=== PATIENT | male | born 1955 | race African-American/Black ===

== ENCOUNTER 2016-11-05 02:17 | Observation (INO) ==
[2016-11-05] MEDS ORDERED: ASPIRIN 325 MG TABLET PO STA (02:58)
[2016-11-05] MEDS ORDERED: MORPHINE 2 MG/1 ML SYRINGE IV STA (02:58)
[2016-11-05] MEDS ORDERED: ONDANSETRON 4 MG/2 ML VIAL IV STA (02:58)
--- NOTE | 2016-11-05 03:05 | Emergency Department Note ---
Jonathan Urbina Hilary, am scribing for, and in the presence of, Caro Tomas DO 03: 02. IThom Debra, DO, personally performed the services described in this documentation, ascribed by Susan Castillo in my presence, and it is both accurate and complete . Arrival - Arrival Chief Complaint: Chest Pain Stated Complaint: poss.heart attack ED Nursing Triage Note: C/O Pain to upper chest radiating into left side of neck. Onset 1899 yesterday after getting off of work. Pt reports that he went to bed and the pain woke him up more severe approx one hour ago. +SOB with the pain. Denies Nausea/vomiting/diaphoresis. Mode of Arrival: Ambulatory Limitations: No Limitations Source: Patient, RN Notes Reviewed Time Seen by Provider: 11/05/16 02:53 - History of Present Illness HPI Narrative: Pt is a 61 y/o male presenting to the ED with c/o chest pains that radiate to the left side of his neck which onset 1899 yesterday. Pt states that he was laying on his left side when the pain woke him up, he became short of breath and decided to come to the ED. Pt confirms he had a stress test and passed it but doesnt recall when it was. No other complaints or problems stated in the ED. Onset (ago): hour(s) Consistency: constant Severity: moderate Severity scale (1-10): 5 Allergies/Adverse Reactions: Allergies Allergy/AdvReac Type Severity Reaction Status Date / Time No Known Allergies Allergy Verified 09/12/16 16:49 Home Medications: Home Medications Medication Instructions Recorded Confirmed Type Esomeprazole Magnesium [Nexium] 40 mg PO DAILY 12/17/14 11/05/16 History Rosuvastatin [Crestor] 20 mg PO DAILY 12/06/15 11/05/16 History Aspirin 81 mg PO DAILY 11/05/16 11/05/16 History Review of System - Review of System 12 point system: reviewed and no additional remarkable complaints except as stated - Review of System Constitutional: Absent: fever Respiratory: Present: respiratory distress (SOB with pain) Cardiovascular: Present: chest pain (radiates to neck) Gastrointestinal: Absent: nausea, vomiting Musculoskeletal: Present: neck pain (radiates from chest) Medical,Surgical,& Family Hx - Medical History Endocrine: History of: Dyslipidemia No history of: Diabetes Mellitus (IDDM) Genitourinary: No history of: Kidney Stones Gastrointestinal: History of: GERD Musculoskeletal: History of: Back/Neck Problems (pulled muscle) Other: No history of: Cancer - Surgical History Cardiac Surgeries: Patient Denies: Cardiac Catheterization HEENT Surgeries: Patient denies: Tonsilectomy & Adenoidectomy Abdominal Surgeries: Surgical HX of: Colonoscopy, EGD Patient denies: Appendectomy, Cholecystectomy Orthopedic Surgeries: Patient denies;: Orthopedic Surgery - Social History Smoking Status: Never smoker Frequency of Alcohol Use: None Type of Drug Use: None Exam Vital Signs: Vital Signs Temperature 97.5 F L 11/05/16 02:20 Pulse Rate 73 11/05/16 02:20 Respiratory Rate 18 11/05/16 02:20 Blood Pressure 130/79 11/05/16 02:20 O2 Sat by Pulse Oximetry 97 11/05/16 02:20 - General General appearance: alert, in no apparent distress - Head Head exam: Present: atraumatic, normocephalic - Eye Eye exam: Present: normal appearance, PERRL, EOMI - ENT ENT exam: Present: mucous membranes moist, TM's normal bilaterally. Absent: mucous membranes dry - Neck Neck exam: Present: full ROM, trachea midline. Absent: tenderness - Chest Chest inspection: Present: symmetric chest wall rise, tenderness (tenderness on palpation) - Respiratory Respiratory exam: Present: normal lung sounds bilaterally. Absent: respiratory distress - Cardiovascular Cardiovascular exam: Present: regular rate, normal rhythm, normal heart sounds. Absent: murmur, rubs, gallop - Abdominal Exam Abdominal exam: Present: soft. Absent: distention, tenderness - Back Exam Back exam: Present: full ROM. Absent: tenderness - Neurological Exam Neurological exam: Present: alert, oriented X3, CN II-XII intact. Absent: motor sensory deficit - Psychiatric Psychiatric exam: Present: normal affect, normal mood - Skin Skin exam: Present: warm, dry, intact, normal color. Absent: rash Course Course Narrative: pt will be admitted to Dr Crowe who will see him in the ER Results - Labs CBC & BMP: 11/05/16 02:54 11/05/16 02:54 Lab Results: I have reviewed the patients labs Labs: Laboratory Tests 11/05/16 11/05/16 02:54 02:54 WBC 6.7 RBC 4.62 Hgb 12.9 L Hct 40.0 L MCV 86.6 L Neut % (Auto) 37.7 L Baso % (Auto) 0.9 H Chloride 108 H Glucose 107 H - Diagnostic Findings Procedure: CT - chest: report reviewed by me (neg for pe) Disposition Clinical Impression: Chest pain Case discussed with: patient, patient's family Disposition: Still a Patient Condition: Stable Time of Disposition: 05:34
[2016-11-05 03:11] LABS: Basophils # 0.1 10*3/uL (0.0-0.2); Basophils % 0.9 % (0.0-0.8); Eosinophils # 0.6 10*3/uL (0.0-0.87); Eosinophils % 8.9 % (0.00-10.9); Hemoglobin 12.9 GM/DL (14.0-18.0); Immature Granulocytes % 0.2 %; Immature Granulocytes Absolute 0.01 #; Lymphocytes # 2.8 10*3/uL (1.4-4.0); Lymphocytes % 41.3 % (21.2-54.2); Mean Corpuscular HGB Conc 32.3 GM/DL (32-36); Mean Corpuscular Hemoglobin 28 PG (27-34); Mean Corpuscular Volume 86.6 FL (87-102); Monocytes # 0.7 10*3/uL (0.11-0.8); Neutrophils # 2.5 10*3/uL (1.4-7.4); Neutrophils % 37.7 % (38.7-73.9); Platelet Count 213 T/CUMM (130-400); Red Blood Count 4.62 MC/CUMM (3.8-5.5); Red Cell Distribution Width 13.5 % (9.3-17.3); White Blood Count 6.7 T/CUMM (4-12)
[2016-11-05] MEDS ORDERED: ONDANSETRON 4 MG/2 ML VIAL ONE (03:17)
[2016-11-05] MEDS ORDERED: MORPHINE 2 MG/1 ML SYRINGE ONE (03:17)
[2016-11-05] MEDS ORDERED: ASPIRIN 325 MG TABLET ONE (03:17)
[2016-11-05 03:20] LABS: D-Dimer 0.8 MG/L FEU; PT Patient Result 11.1 SECS; Partial Thromboplastin Time 27.9 SECS (0-40)
[2016-11-05 03:22] LABS: Albumin 3.7 G/DL (3.4-5.0); Bilirubin,Total 0.4 MG/DL (0.2-1.0); Calcium 9.3 MG/DL (8.5-10.1); Osmolality,Calculated 283.8 MOS/KG (273-304); Potassium 3.5 MMOL/L (3.5-5.1); Total Protein 6.9 G/DL (6.4-8.3)
[2016-11-05 04:18] LABS: Eosinophils 10 % (0-10); Hypochromasia 2+; Lymphocytes 48 % (20-55); Platelet Estimate Normal; Segmented Neutrophils 35 % (50-85); Total Cells Counted 100
[2016-11-05] MEDS ORDERED: MORPHINE 2 MG/1 ML SYRINGE IV PRN (05:40)
[2016-11-05] MEDS ORDERED: ONDANSETRON 4 MG/2 ML VIAL IV PRN (05:40)
[2016-11-05] MEDS ORDERED: ACETAMINOPHEN 325 MG TABLET PO PRN (05:40)
--- NOTE | 2016-11-05 05:46 | CT Report ---
EXAM: CT chest PE study DATE: November 05, 2016 COMPARISON: None REASON: Chest pain, shortness of breath, elevated d-dimer Preliminary report was provided by [facility]. TECHNIQUE: Axial images of the chest were obtained after administration of 80 cc of Omnipaque 350 intravenous contrast. Coronal/sagittal reformatted images and coronal/sagittal MIP images were also acquired. The study was performed per pulmonary embolism protocol. Total DLP was 354.6 mGy*cm. FINDINGS: Pulmonary arteries: There is no evidence of pulmonary embolism through the segmental pulmonary arteries. Vascular/heart: The thoracic aorta is normal in size. Evaluation for dissection is limited, but no obvious aortic dissection is seen. There is mild to moderate scattered calcified plaque at the thoracic aorta and its branches, including the coronary arteries. The heart is normal in size. No pericardial effusion is seen. Lymph nodes: There are prominently calcified mediastinal and right hilar lymph nodes. No suspicious axillary adenopathy is identified. Other mediastinum: Otherwise unremarkable. Chest wall: Unremarkable. Lungs: There are mild opacities within both lungs which are mainly within the dependent aspects of both lower lobes. This is most consistent with atelectasis. Calcified granulomas are also seen within the right middle lobe. No pneumothorax or pleural effusion is identified. Bones: No acute osseous process is identified. Upper abdomen: No acute process is seen within the visualized upper abdomen. IMPRESSION: There is no evidence of pulmonary embolism. PROCEDURE INTERPRETED AT [facility] DEPARTMENT OF RADIOLOGY Final Report Signed by: Dr. Shahnaz Moreno
--- NOTE | 2016-11-05 05:46 | Hospitalist History & Physical ---
Assessment and Plan (1) History of esophageal reflux Status: Acute Current Visit: Yes (2) History of increased cholesterol Status: Acute Current Visit: Yes (3) Chest pain Status: Acute Assessment and plan: We will admit the patient to telemetry on our service. We will draw serial cardiac enzymes and consult cardiology. Continue home meds as appropriate Current Visit: Yes History of Present Illness Chief complaint: Chest pain History of present illness: Mr. Bazan is a 61 year old male with past medical history significant for increased cholesterol and reflux who reports chest pain started yesterday after work. Patient reports that the pain went off alone. He went to bed in did occur and woke him up. He feels short of breath when the pain came own he describes pain as sharp radiating to his left side of his jaw. He is stretch box tender to touch on the left side of his chest wall. He denies any kind of diaphoresis signs. He got concerned he was having a heart attack and came to our hospital for further evaluation. I was consulted to admit him through the emergency room Home Medications Medication Instructions Recorded Confirmed Type Esomeprazole Magnesium [Nexium] 40 mg PO DAILY 12/17/14 11/05/16 History Rosuvastatin [Crestor] 20 mg PO DAILY 12/06/15 11/05/16 History Aspirin 81 mg PO DAILY 11/05/16 11/05/16 History Allergies Allergy/AdvReac Type Severity Reaction Status Date / Time No Known Allergies Allergy Verified 09/12/16 16:49 Medical,Surgical,& Family Hx - Medical History Endocrine: History of: Dyslipidemia No history of: Diabetes Mellitus (IDDM) Genitourinary: No history of: Kidney Stones Gastrointestinal: History of: GERD Musculoskeletal: History of: Back/Neck Problems (pulled muscle) Other: No history of: Cancer - Surgical History Cardiac Surgeries: Patient Denies: Cardiac Catheterization HEENT Surgeries: Patient denies: Tonsilectomy & Adenoidectomy Abdominal Surgeries: Surgical HX of: Colonoscopy, EGD Patient denies: Appendectomy, Cholecystectomy Orthopedic Surgeries: Patient denies;: Orthopedic Surgery - Family History Family History: Reports;: Family Diabetes, Family Heart Disease - Social History Smoking Status: Never smoker Frequency of Alcohol Use: None Type of Drug Use: None 12 point system: reviewed and no additional remarkable complaints except as stated Exam - Constitutional Vitals: Period Temp Pulse Resp BP Sys/Melissa Pulse Ox Last 24 Hr 97.5 F 73 18 130/79 97 General appearance: normal weight - Head Head exam: Present: normal inspection - Eye Eye exam: Present: EOMI Pupils: Present: VIOLET - ENT ENT exam: Present: normal exam - Neck Neck exam: Present: normal inspection - Respiratory Respiratory exam: Present: clear to auscultation bilaterally - Cardiovascular Cardiovascular exam: Present: regular rate and rhythm, other (Patient has chest wall pain) - GI/Abdominal GI/Abdominal exam: Present: normal bowel sounds - Extremities Exam Extremities exam: Present: normal inspection - Back Exam Back exam: Present: normal inspection - Neurological Exam Neurological exam: Present: alert - Psychiatric Psychiatric exam: Present: normal affect Results - Labs CBC & BMP: 11/05/16 02:54 11/05/16 02:54
[2016-11-05 06:05] LABS: Risk Ratio 4.38; VLDL CHOLESTEROL 23.2 MG/DL
--- NOTE | 2016-11-05 06:25 | XRay Report ---
Referring Physician: Caro Tomas DO Exam: XR chest 1V portable Date: November 05, 2016 at 3:01 AM Reason: Chest pain Comparison: Chest 2 views September 12, 2016 Findings: The cardiac silhouette is normal in size. No focal consolidation, pneumothorax or pleural effusion is identified. However, there is a small calcified granuloma within the right lower lung zone. No acute osseous process is seen. Impression: No acute cardiopulmonary process is identified. PROCEDURE INTERPRETED AT [facility] DEPARTMENT OF RADIOLOGY Final Report Signed by: Dr. Shahnaz Moreno
[2016-11-05] MEDS: ENOXAPARIN 40 MG/0.4 ML SYRINGE SUBCUT SCH (06:40)
--- NOTE | 2016-11-05 08:06 | EKG Report ---
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
--- NOTE | 2016-11-05 08:07 | EKG Report ---
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
[2016-11-05] MEDS ORDERED: ASPIRIN EC 325 MG TABLET PO ONE (08:32)
[2016-11-05] MEDS ORDERED: PANTOPRAZOLE 40 MG TABLET PO ONE (08:57)
[2016-11-05] MEDS ORDERED: ASPIRIN EC 325 MG TABLET PO SCH (09:00)
[2016-11-05] MEDS: ROSUVASTATIN 20 MG TABLET PO SCH (09:02)
[2016-11-05] MEDS: PANTOPRAZOLE 40 MG TABLET PO SCH (09:02)
--- NOTE | 2016-11-05 11:15 | EKG Report ---
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
--- NOTE | 2016-11-05 15:03 | Hospitalist Progress Note ---
Assessment and Plan - Time spent with patient Time spent with patient: Greater than 30 minutes (1) Chest pain Status: Acute Assessment and plan: Troponins negative. EKG unremarkable. Patient had a stress test several years ago here at [facility]. Defer to cardiology. Current Visit: Yes Hospitalist: Subjective Interval history: Admitted for evaluation of chest pain has not had recurrence since. Awaiting cardiology consult. Exam - Constitutional Vitals: Period Temp Pulse Resp BP Sys/Melissa Pulse Ox Last 24 Hr 97.1 F 62-78 13-20 104-147/58-82 97-100 General appearance: no acute distress - Head Head exam: Present: normocephalic, atraumatic - Eye Eye exam: Present: EOMI Pupils: Present: VIOLET - ENT ENT exam: Present: normal exam - Neck Neck exam: Present: normal inspection - Respiratory Respiratory exam: Present: clear to auscultation bilaterally. Absent: rhonchi, wheezes - Cardiovascular Cardiovascular exam: Present: regular rate and rhythm. Absent: gallop, rubs, systolic murmur - GI/Abdominal GI/Abdominal exam: Present: normal bowel sounds, soft. Absent: distended, firm , guarding, tenderness, rebound - Extremities Exam Extremities exam: Present: normal inspection. Absent: calf tenderness, edema Results - Labs CBC & BMP: 11/05/16 02:54 11/05/16 02:54 Lab Results: I have reviewed the past 24 hour labs
--- NOTE | 2016-11-05 15:14 | Cardiology Consult Note ---
<Zuleima Matamoros - Last Filed: 11/05/16 15:04> Assessment and Plan (1) Chest pain Status: Acute Assessment and plan: Patient's chest pain seems to be consistent with musculoskeletal pain. His left chest wall is extremely tender to palpation. He reports that this reproduces the same pain that he presented to the ER with. Troponin has been negative 3. EKG does not reveal any acute findings. We will treat his musculoskeletal pain with Toradol. Further plan and addendum to follow per Dr. Caceres. Current Visit: Yes (2) History of esophageal stricture Status: Chronic Assessment and plan: Patient has a history of esophageal stricture. Routinely followed by Dr. Pfeiffer. Patient has requested to state Dr. Pfeiffer while here in the hospital. He feels like it is time for his esophagus to be dilated again. We will consult Dr. Pfeiffer in the morning. Current Visit: Yes (3) History of esophageal reflux Status: Chronic Assessment and plan: Continue current plan of care with PPI. Current Visit: Yes (4) History of increased cholesterol Status: Chronic Assessment and plan: Continue current plan of care with lipid lowering agent. Will order lipid profile. Current Visit: Yes History of Present Illness - Data of Consult Patient: new to practice Consult date: 11/05/16 Requesting Physician: Aylin Lopez Primary care physician: Hitesh Galindo - Consult Narrative Reason for consult: chest pain History of present illness: Spring Tester: none PCP: Dr. Hitesh Galindo Cardiology consult note: Chest pain Mr. Bazan is a 61 year old male patient without known history of coronary artery disease, not routinely followed by cardiology. Patient presented to the ER today with complaints of chest pain. Patient has cardiac risk factors significant for hyperlipidemia and family history of coronary artery disease ( grandmother from [place]). Patient has a past medical history of GERD, hiatal hernia and esophageal stricture. Patient had his esophagus dilated last approximately 1-2 years ago. Patient is a non-smoker. Patient denies any significant surgical history. Patient reports that he had a stress test done at [facility] in 2012, which was normal. He has never undergone left heart catheterization. Patient is in his usual state of health until this morning when he experienced an episode of a left-sided chest pain. He tells me that this woke him up from his sleep this morning. He describes this as a sharp pain located to his left chest that radiated to his neck. This is also associated with shortness of breath and lightheadedness. He denies any nausea and diaphoresis. He is unable to identify any aggravating factors. He does tell me that this was not worsened with exertion. He does me that this pain was only going. This concerned him so he presented to the ER for further evaluation. His pain was finally relieved after receiving morphine in the ER. Patient was admitted to the hospitalist's service and housed on the telemetry floor. Cardiology has been consulted to further evaluate patient's chest pain. Of note, patient tells me that him and his worked in the yard Thursday afternoon. Upon exam, his left chest was extremely tender to palpation. He tells me that this was the same pain that he was experiencing this morning and he presented to the ER for. He is an active person. He tells me that he does not experience chest pain, heaviness or tightness with exertion. He also denies dyspnea on exertion and easy fatigability. Patient was seen and examined on telemetry. He is currently chest pain-free. Troponin has been negative 3 checks. EKG does not reveal any acute findings. Chest x-ray did not reveal any acute cardiopulmonary processes. Chest CT was negative for pulmonary embolism. Upon exam, his chest pain was reproducible. This is consistent with musculoskeletal pain. We will treat this pain with IV Toradol. While in the room, patient requested to see Dr. Pfeiffer while he was here. He thinks that it is getting time for his esophagus to be dilated again. Will consult Dr. Pfeiffer in the morning. Patient is currently normal sinus rhythm with heart rates in the 60s without any overt arrhythmias or ectopy noted. Blood pressure is well controlled. Continue to monitor patient on telemetry. Further plan and addendum to follow per Dr. Caceres. CC: Aylin Lopez MD - Home Medications and Allergies Home Medications: Home Medications Medication Instructions Recorded Confirmed Type Esomeprazole Magnesium [Nexium] 40 mg PO DAILY 12/17/14 11/05/16 History Rosuvastatin [Crestor] 20 mg PO DAILY 12/06/15 11/05/16 History Aspirin 81 mg PO DAILY 11/05/16 11/05/16 History Allergies/Adverse Reactions: Allergies Allergy/AdvReac Type Severity Reaction Status Date / Time No Known Allergies Allergy Verified 09/12/16 16:49 - Constitutional Constitutional: Absent: chills, fatigue, fever(s), frequent falls, headache(s), lethargy, malaise, weakness, weight gain, weight loss - Cardiovascular Cardiovascular: Present: chest pain at rest, dyspnea, radiating jaw, neck or arm pain, lightheadedness. Absent: chest pain with activity, claudication, diaphoresis, edema, orthopnea, palpitations, PND - Respiratory Respiratory: Absent: cough, hemoptysis, dyspnea on exertion, wheezing, snoring, pain on inspiration, change in phlegm color - Gastrointestinal Gastrointestinal: Present: dysphagia, heartburn. Absent: abdominal pain, constipation, cramping, diarrhea, hematemesis, hematochezia, loose stools, melena, nausea, vomiting - Neurological Neurological: Present: dizziness. Absent: abnormal gait, abnormal speech, behavioral changes, focal weakness, headache(s), numbness, syncope - Psychiatric Psychiatric: Absent: anxiety, depression, panic attacks - Hematologic/Lymphatic Hematologic/Lymphatic: Absent: easy bleeding, easy bruising, lymphadenopathy Medical,Surgical,& Family Hx - Medical History Cardio: No history of: CAD Endocrine: History of: Dyslipidemia No history of: Diabetes Mellitus (IDDM) Genitourinary: No history of: Kidney Stones Gastrointestinal: History of: GERD Musculoskeletal: History of: Back/Neck Problems (pulled muscle) Other: No history of: Cancer - Surgical History Cardiac Surgeries: Patient Denies: Cardiac Catheterization HEENT Surgeries: Patient denies: Tonsilectomy & Adenoidectomy Abdominal Surgeries: Surgical HX of: Colonoscopy, EGD Patient denies: Appendectomy, Cholecystectomy Orthopedic Surgeries: Patient denies;: Orthopedic Surgery - Family History Family History: Reports;: Family Diabetes, Family Heart Disease (Grandmother) - Social History Smoking Status: Never smoker Frequency of Alcohol Use: None Type of Drug Use: None Physical Examination Vital Signs Temp Pulse Resp BP Pulse Ox 97.5 F L 73 18 130/79 97 11/05/16 02:20 11/05/16 02:20 11/05/16 02:20 11/05/16 02:20 11/05/16 02:20 General: Present: Appears Well, No Apparent Distress Neck: Present: Supple Neck, Midline Trachea Cardiac: Present: Reg Rate and Rhythm, Regular Rate, Regular Rhythm Lungs: Present: Normal Exam, Clear Ascult./Percussion, Normal Breath Sounds Neuro: Present: Cranial Nerve 2-12 Intact, Grossly Intact Abdomen: Present: Soft, Active Bowel Sounds, Non-Tender Skin: Present: Clear. Absent: Rash, Suspicious Lesions Gait: Present: Normal Gait Extremities: Present: Normal Gait, No Clubbing, No Cyanosis, No Edema, Normal Upper Extr. Pulses, Normal Lower Extr. Pulses Result/EKG - Labs CBC & BMP: 11/05/16 02:54 11/05/16 02:54 Lab Results: I have reviewed the past 24 hour labs Labs: Laboratory Results - last 24 hr 11/05/16 09:20 Troponin I < 0.015 - EKG EKG results: interpreted by me, sinus rhythm <Tiburcio Caceres - Last Filed: 11/05/16 16:29> History of Present Illness - Consult Narrative History of present illness: Cardiology addendum. Patient examined and chart reviewed. 61-year-old man spent the weekend working in his yard. He has chest wall tenderness to palpation. Troponin negative 3. CT the chest was negative for pulmonary embolus.. The patient a lifetime non-smoker and nondrinker. No history of hypertension no history of diabetes. No history of stroke. 5 feet 11 inches tall 195 pounds. Weight is been stable. Father in a train accident 865. His mother is 81 and has hypertension and a left AKA. The patient has chronic GE reflux symptoms and has had multiple esophageal stricture dilatation. Last EGD was December 06, 2015 which showed hiatal hernia and a recurrent esophageal stricture which was dilated by Dr. Pfeiffer. Previously he was dilated April 09, 2016. He does take Nexium 40 mg daily. [place] juice, pizza, chili and onions cause heartburn. He avoids several foods. EKG shows sinus rhythm with ST-T wave changes. Impression Musculoskeletal chest pain Chronic GE reflux status post last esophageal stricture dilatation december 06, 2015 Lifetime non-smoker No diabetes Plan Toradol Echo Exercise cardiac stress test [address] Pfeiffer to see today for probable EGD. CC: Aylin Lopez MD Physical Examination Vital Signs Temp Pulse Resp BP Pulse Ox 97.5 F L 73 18 130/79 97 11/05/16 02:20 11/05/16 02:20 04/12/17 02:20 11/05/16 02:20 11/05/16 02:20 Result/EKG - Labs CBC & BMP: 11/05/16 02:54 11/05/16 02:54 Labs: Laboratory Results - last 24 hr 11/05/16 09:20 Troponin I < 0.015
[2016-11-05] MEDS ORDERED: KETOROLAC 30 MG/1 ML VIAL IV ONE (15:21)
--- NOTE | 2016-11-05 16:10 | Gastrointestinal Consult Note ---
Assessment and Plan (1) Atypical chest pain Status: Acute Assessment and plan: 11/05-sudden onset last night of chest pain radiating to his neck and jaw. Negative cardiac workup at present time. History of GERD and esophageal stricture in the past. Symptoms unrelated to previous experience. Last EGD November 2015 with dilation. Plan for tentative EGD tomorrow to further evaluate source of pain. Plan an addendum to followed by Dr. Pfeiffer Current Visit: Yes History of Present Illness Chief complaint: Atypical chest pain History of present illness: Mr. Bazan is a 61 year old male who was admitted to the hospital earlier this morning with onset of chest pain. Patient states that yesterday afternoon he had a sudden onset of chest pain that radiated up to the left side of his neck. This pain was associated with some shortness of breath but denies any other associated symptoms. Patient states his pain is like nothing he has had before. He has a history of acid reflux and esophageal stricture in the past but states it was not related that pain. He denies any nausea or vomiting. Denies any fever, chills, or recent weight loss. Denies any changes in his stools other than some constipation. Denies melena or hematochezia. Denies any regular NSAID use. He has a history of esophageal stricture with his last EGD and dilation done and November 2015.He denies any dysphagia symptoms at this time. He denies any odynophagia as well. He states that he has noticed he has had an increase in belching and bloating in his abdomen after eating lately. Last colonoscopy was done 2008 with only findings of internal hemorrhoids and recommendation of a 10 year follow-up. He denies any family history of colon cancer. He brings forth today that he is more concerned about the changes in his bowel consistency to going only every 2-3 days. He also states that he has some generalized abdominal tenderness that he has had off and on for several weeks. Denies any history of gallbladder disease or family history of gallbladder problems. He reports having a fairly recent stress test which was negative. Cardiology has consulted. Cardiac workup is negative thus far. Home Medications Medication Instructions Recorded Confirmed Type Esomeprazole Magnesium [Nexium] 40 mg PO DAILY 12/17/14 11/05/16 History Rosuvastatin [Crestor] 20 mg PO DAILY 12/06/15 11/05/16 History Aspirin 81 mg PO DAILY 11/05/16 11/05/16 History Allergies Allergy/AdvReac Type Severity Reaction Status Date / Time No Known Allergies Allergy Verified 09/12/16 16:49 Medical,Surgical,& Family Hx - Medical History Cardio: No history of: CAD Endocrine: History of: Dyslipidemia No history of: Diabetes Mellitus (IDDM) Genitourinary: No history of: Kidney Stones Gastrointestinal: History of: GERD Musculoskeletal: History of: Back/Neck Problems (pulled muscle) Other: No history of: Cancer - Surgical History Cardiac Surgeries: Patient Denies: Cardiac Catheterization HEENT Surgeries: Patient denies: Tonsilectomy & Adenoidectomy Abdominal Surgeries: Surgical HX of: Colonoscopy, EGD Patient denies: Appendectomy, Cholecystectomy Orthopedic Surgeries: Patient denies;: Orthopedic Surgery - Family History Family History: Reports;: Family Diabetes, Family Heart Disease (Grandmother) - Social History Smoking Status: Never smoker Frequency of Alcohol Use: None Type of Drug Use: None 12 point system: reviewed and no additional remarkable complaints except as stated - Constitutional Constitutional: Present: as per HPI - EENT Eyes: Present: as per HPI Ears: Present: as per HPI Nose, mouth and throat: Present: as per HPI - Cardiovascular Cardiovascular: Present: as per HPI, chest pain at rest - Respiratory Respiratory: Present: as per HPI - Gastrointestinal Gastrointestinal: Present: as per HPI, abdominal pain, constipation, heartburn - Genitourinary Genitourinary: Present: as per HPI - Musculoskeletal Musculoskeletal: Present: as per HPI - Neurological Neurological: Present: as per HPI - Psychiatric Psychiatric: Present: as per HPI - Endocrine Endocrine: Present: as per HPI - Hematologic/Lymphatic Hematologic/Lymphatic: Present: as per HPI Exam - Constitutional Vitals: Period Temp Pulse Resp BP Sys/Melissa Pulse Ox Last 24 Hr 97.1 F-97.4 F 62-78 13-20 104-147/58-82 97-100 General appearance: normal weight, no acute distress - Head Head exam: Present: normal inspection, normocephalic - Eye Eye exam: Present: other (Lids and conjunctivae unremarkable). Absent: scleral icterus - ENT ENT exam: Present: normal exam, normal oropharynx - Neck Neck exam: Present: normal inspection - Respiratory Respiratory exam: Present: clear to auscultation bilaterally. Absent: rales, rhonchi, wheezes - Cardiovascular Cardiovascular exam: Present: regular rate and rhythm. Absent: diastolic murmur , JVD, systolic murmur - GI/Abdominal GI/Abdominal exam: Present: normal bowel sounds, tenderness (Abdominal), soft. Absent: ascites, distended, mass, organomegaly - Extremities Exam Extremities exam: Present: normal inspection, full ROM - Back Exam Back exam: Present: normal inspection - Neurological Exam Neurological exam: Present: alert, oriented X3 - Psychiatric Psychiatric exam: Present: normal affect, normal mood - Skin Skin exam: Present: normal color, warm, dry Results - Labs CBC & BMP: 11/05/16 02:54 11/05/16 02:54 Lab Results: I have reviewed the past 24 hour labs
[2016-11-05] MEDS: KETOROLAC 15 MG/1 ML VIAL IV SCH (22:27)
[2016-11-06] MEDS: KETOROLAC 15 MG/1 ML VIAL IV SCH ×4 (03:51→21:36)
[2016-11-06 05:07] LABS: Risk Ratio 4.11; VLDL CHOLESTEROL 18.2 MG/DL
[2016-11-06] MEDS: ENOXAPARIN 40 MG/0.4 ML SYRINGE SUBCUT SCH (05:44)
--- NOTE | 2016-11-06 09:31 | Cardiology Progress Note ---
<Jacqueline Kay E - Last Filed: 11/06/16 09:31> Assessment and Plan - Time spent with patient Time spent with patient: Greater than 30 minutes (1) Chest pain Status: Resolved Assessment and plan: SEE PLAN OF CARE LISTED BELOW Current Visit: Yes (2) History of esophageal reflux Status: Chronic Assessment and plan: SEE PLAN OF CARE LISTED BELOW Current Visit: Yes (3) History of esophageal stricture Status: Chronic Assessment and plan: SEE PLAN OF CARE LISTED BELOW Current Visit: Yes (4) History of increased cholesterol Status: Chronic Assessment and plan: SEE PLAN OF CARE LISTED BELOW Current Visit: Yes Cardiology - PN: Subj Interval history: Development Coach: Dr. Caceres PCP: Dr. Hitesh Galindo Cardiology consult note: Chest pain Mr. Bazan is a 61 year old male patient without known history of coronary artery disease, not previously followed by cardiology. Patient presented to the ER today with complaints of chest pain November 05, 2016. Cardiac biomarkers were negative and EKG unremarkable. Chest x-ray did not reveal any acute cardiopulmonary processes. Chest CT was negative for pulmonary embolism. DAY 1: NOVEMBER 07, 2016: Overnight, no additiona lchest pain. He is NPO for stress testing this morning. Should he receive favorable results from stress test, he will undergo EGD this afternoon by Dr. Pfeiffer. 1. CHEST PAIN - CIE negative. NPO for stress testing today. 2. HISTORY OF ESOPHAGEAL REFLUX AND STRICTURE - Dr. Pfeiffer treating 3. DYSLIPIDEMIA - lipid lowering agent initiated. Exam (Progress Note) - Constitutional Vitals: Period Temp Pulse Resp BP Sys/Melissa Pulse Ox Last 24 Hr 97.1 F-97.8 F 64-79 13-18 100-147/58-81 95-100 General appearance: normal weight, no acute distress - Head Head exam: Present: normal inspection, normocephalic - Eye Eye exam: Present: EOMI, conjunctival injection. Absent: nystagmus Pupils: Present: VIOLET, normal accommodation - ENT ENT exam: Absent: normal external ear exam, normal oropharynx - Neck Neck exam: Absent: lymphadenopathy, thyromegaly - Respiratory Respiratory exam: Present: clear to auscultation bilaterally, accessory muscle use - Cardiovascular Cardiovascular exam: Present: regular rate and rhythm. Absent: carotid bruit, JVD - GI/Abdominal GI/Abdominal exam: Present: normal bowel sounds. Absent: guarding, mass - Extremities Exam Extremities exam: Present: normal capillary refill, full ROM. Absent: calf tenderness - Back Exam Back exam: Absent: CVA tenderness (L), CVA tenderness (R), muscle spasm - Neurological Exam Neurological exam: Present: alert, oriented X3, normal gait - Psychiatric Psychiatric exam: Present: normal affect, normal mood - Skin Skin exam: Present: normal color. Absent: rash Result/EKG - Labs CBC & BMP: 11/05/16 02:54 11/05/16 02:54 Lab Results: I have reviewed the past 24 hour labs Labs: Laboratory Results - last 24 hr 11/05/16 11/06/16 09:20 03:39 Troponin I < 0.015 Triglycerides 91 Cholesterol 185 LDL Cholesterol 128.0 VLDL Cholesterol 18.2 HDL Cholesterol 45 Heart Disease Risk Ratio 4.11 - Diagnostic Findings Procedure: Chest x-ray: report reviewed by me, CT - chest: report reviewed by me - EKG EKG results: interpreted by mt EKG shows: sinus rhythm <Tiburcio Caceres - Last Filed: 11/06/16 15:15> Cardiology - PN: Subj Interval history: Cardiology addendum. Patient examined and chart reviewed. Pain is very atypical and not likely ischemic. Chronic GE reflux with history of multiple esophageal stricture dilatations Nuclear stress test today. If negative, EGD with Dr. Pfeiffer Exam (Progress Note) - Constitutional Vitals: Period Temp Pulse Resp BP Sys/Melissa Pulse Ox Last 24 Hr 97.2 F-97.8 F 65-83 14-20 100-131/66-082 93-100 Result/EKG - Labs CBC & BMP: 11/05/16 02:54 11/05/16 02:54 Labs: Laboratory Results - last 24 hr 11/06/16 03:39 Triglycerides 91 Cholesterol 185 LDL Cholesterol 128.0 VLDL Cholesterol 18.2 HDL Cholesterol 45 Heart Disease Risk Ratio 4.11
--- NOTE | 2016-11-06 09:35 | Event Note ---
Underwent stress testing and achieved THR without complaints of chest pain, heaviness or tightness. Good exercise tolerance. No arrythmia noted. No significant ST changes noted. Now, to nuclear medicine for final scan. Dr. Caceres to read, interpret and advise.
--- NOTE | 2016-11-06 12:53 | Event Note ---
Event note normal exercise Cardiolite stress test. Patient walked 9 minutes on the standard Luis A protocol and achieved 10.1 METS. No chest pain or EKG changes. Tomographic imaging normal. Ejection fraction 57 %. Noncardiac chest pain. Patient had been reassured. This is a low risk scan. The patient has a long history of chronic GE reflux and esophageal stricture dilatation Plan EGD today.
--- NOTE | 2016-11-06 13:22 | Hospitalist Progress Note ---
Assessment and Plan - Time spent with patient Time spent with patient: Greater than 30 minutes (1) Chest pain Status: Resolved Assessment and plan: Troponins negative. EKG unremarkable. Stress test pending. Appreciate cardiology's assistance. GI is also involved for evaluation of his chest pain. EGD planned later today. Current Visit: Yes Hospitalist: Subjective Interval history: No complaints, no overnight events. Denies any recurrence of chest pain. Stress test pending. Exam - Constitutional Vitals: Period Temp Pulse Resp BP Sys/Melissa Pulse Ox Last 24 Hr 97.2 F-97.8 F 65-82 14-18 100-131/66-81 95-100 General appearance: no acute distress - Head Head exam: Present: normocephalic, atraumatic - Eye Eye exam: Present: EOMI Pupils: Present: VIOLET - ENT ENT exam: Present: normal exam - Neck Neck exam: Present: normal inspection - Respiratory Respiratory exam: Present: clear to auscultation bilaterally. Absent: rhonchi, wheezes - Cardiovascular Cardiovascular exam: Present: regular rate and rhythm. Absent: gallop, rubs, systolic murmur - GI/Abdominal GI/Abdominal exam: Present: normal bowel sounds, soft. Absent: distended, firm , guarding, tenderness, rebound - Extremities Exam Extremities exam: Present: normal inspection. Absent: calf tenderness, edema Results - Labs CBC & BMP: 11/05/16 02:54 11/05/16 02:54 Lab Results: I have reviewed the past 24 hour labs
[2016-11-06] MEDS ORDERED: PROPOFOL 200 MG/20 ML VIAL IV ONE (13:54)
--- NOTE | 2016-11-06 13:56 | History and Physical Update ---
History and Physical Update - History and Physical H&P was reviewed, the patient examined and there: are no changes in the patients condition since last H&P was completed. - Physical Exam Mental Status: alert and oriented Heart: regular rate and rhythm Lung: clear to auscultation Abdomen: within normal limits Vitals: within normal limits
--- NOTE | 2016-11-06 14:04 | Operative Note ---
Date of procedure: 11/06/16 Pre-op diagnosis: Noncardiac chest pain Procedure: Procedure: Esophagogastroduodenoscopy Brief clinical abstract: Patient is a 61-year-old male admitted with chest pain which has been ruled to be noncardiac. He has history of GERD and has been on PPI therapy. He denies difficulty swallowing. Indication for procedure: Noncardiac chest pain Endoscopic findings:[After informed consent was obtained, the patient was placed in the left lateral decubitus position. The gastroscope was inserted in the upper esophagus under direct vision with no resistance encountered. Esophageal mucosa appeared normal with squamocolumnar junction sharply demarcated above a 2 cm hiatal hernia. No erosions or ulcerations were seen. The endoscope was advanced in the stomach which was carefully examined including retroflexed view of the cardia and fundus with no abnormality seen. The pyloric channel, duodenal bulb, second and third portion of the duodenum were normal. The endoscope was withdrawn and patient appeared to tolerate procedure well. Impression: Small hiatal hernia-otherwise normal EGD Recommendations: Continue daily PPI therapy and follow clinically for now. Anesthesia: MAC Surgeon / Physician: Joe Pfeiffer Estimated blood loss: none Specimens: none sent Condition: stable Disposition: post procedure unit Results - Labs CBC & BMP: 11/05/16 02:54 11/05/16 02:54 Discharge Plan - Discharge Medications No Action Esomeprazole Magnesium [Nexium] 40 mg PO DAILY Rosuvastatin [Crestor] 20 mg PO DAILY Aspirin 81 mg PO DAILY - Follow Up or Referral - Forms/Instructions
--- NOTE | 2016-11-06 14:09 | Anesthesia ---
Anesthesia Post OP - Post Ansesthetic Evaluation Patient seen in post op: Yes Resp: within normal limits CV: within normal limits Mental: within normal limits Temp: within normal limits [id number]: within normal limits Nausea and Vomiting: within normal limits Pain: within normal limits
[2016-11-06] MEDS: PANTOPRAZOLE 40 MG TABLET PO SCH (14:56)
[2016-11-06] MEDS: ROSUVASTATIN 20 MG TABLET PO SCH (14:56)
[2016-11-06] MEDS: ASPIRIN EC 81 MG TABLET PO SCH (14:56)
--- NOTE | 2016-11-06 16:15 | Nuclear Medicine Report ---
PROCEDURE: EXERCISE CARDIOLITE GATED SPECT PERFUSION STUDY. DATE: 11/06/2016 INITIAL IMPRESSION: 1. A 61-YEAR-OLD MALE WITH ATYPICAL CHEST PAIN. 2. ABNORMAL EKG. 3. HYPERTENSION. FINAL IMPRESSION: NORMAL EXERCISE CARDIOLITE GATED SPECT PERFUSION. I. DESCRIPTION OF PROCEDURE: The patient received 10.0 mCi of Technetium-99m Cardiolite IV and rest images were obtained in the routine manner 20 minutes later. The resting heart beat was 87 beats per minute. The patient then walked for 8 minutes 58 seconds on the Luis A protocol and achieved a peak heart of 141, which is 88% of his predicted maximal heart rate. At peak exercise, 30.0 mCi of Technetium-99m Cardiolite IV was injected and stress image was obtained in the routine manner 20 minutes later. Serial electrocardiograms were performed. The initial blood pressure was 128/85 and it was 160/90 immediate post exercise. II. RESULTS: The patient had no chest pain or arrhythmias, and the test was terminated due to shortness of breath and fatigue. The resting EKG demonstrates normal sinus rhythm with preserved R waves and ST-T wave changes. With exercise, no diagnostic EKG changes occurred. No arrhythmias. Tomographic imaging demonstrates homogenous uptake of radioisotope in all segments. There is no evidence for ischemia or scar. Gated SPECT imaging demonstrates normal wall motion and thickening in all segments. The calculated ejection fraction is 57%. III. FINAL IMPRESSION: 1. CLINICALLY AND ELECTROGRAPHICALLY NEGATIVE. 2. GOOD WORK CAPACITY. THE PATIENT ACHIEVED 10.1 METS. 3. SCINTIGRAPHICALLY NORMAL PERFUSION STUDY. IV. DISPOSITION: The patient should be reassured regarding the lack of any evidence for significant coronary artery disease at this time. He had no chest pain or diagnostic EKG changes, and tomographic imaging is normal. In addition , ventricular function is well preserved with ejection fraction of 57%. This is a low-risk scan. Continued medical therapy and risk-factor modification recommended. Procedure performed and interpreted at [facility] Department of Radiology [facility]
--- NOTE | 2016-11-06 17:44 | ECHO Report ---
Alexandre Bazan Exam Date: 11/06/2016 09:35 Referring Physician: Technologist: Gabrielle Brito EDMAR Age: 61 Ht (in): 71 Wt (lb): 195 Gender: M Exam Location: [facility] Echo Indications: Chest pain, unspecified BP: 121 / 71 HR: 79 Rhythm: Sinus Technical Quality: IMPRESSIONS EF 60 %. Grade I/IV diastolic dysfunction (abnormal relaxation filling pattern), normal to mildly elevated filling pressures. The right ventricle is normal in size and function. The right atrium is mildly enlarged. The left atrium is mildly enlarged. Morphologically normal mitral valve. Trace mitral valve regurgitation. Aortic valve sclerosis. No aortic valve regurgitation. Mild tricuspid valve regurgitation. [id number] mmHG. Trace pulmonary valve regurgitation. Normal pericardium without effusion. Normal ascending aorta dimension. MEASUREMENTS (Male / Female) Normal Values 2D ECHO LV Diastolic Diameter PLAX 3.9 cm 4.2 - 5.9 / 3.9 - 5.3 cm LV Systolic Diameter PLAX 2.0 cm LV Fractional Shortening PLAX 48.3 % IVS Diastolic Thickness 1.2 cm 0.6 - 1.0 / 0.6 - 0.9 cm LVPW Diastolic Thickness 1.1 cm 0.6 - 1.0 / 0.6 - 0.9 cm RV Internal Dim ED PLAX 2.7 cm Aortic Root Diameter 3.4 cm LA Systolic Diameter LX 3.5 cm 3.0 - 4.0 / 2.7 - 3.8 cm DOPPLER TR Peak Velocity 239.0 cm/s TR Peak Gradient 22.8 mmHg FINDINGS Left Ventricle EF 60 %. Grade I/IV diastolic dysfunction (abnormal relaxation filling pattern), normal to mildly elevated filling pressures. Right Ventricle The right ventricle is normal in size and function. Right Atrium The right atrium is mildly enlarged. Left Atrium The left atrium is mildly enlarged. Mitral Valve Morphologically normal mitral valve. Trace mitral valve regurgitation. Aortic Valve Aortic valve sclerosis. No aortic valve regurgitation. Tricuspid Valve Morphologically normal tricuspid valve. Mild tricuspid valve regurgitation. VLR80-94 mmHG. Pulmonic Valve Morphologically normal pulmonic valve. Trace pulmonary valve regurgitation. Pericardium Normal pericardium without effusion. Aorta Normal ascending aorta dimension. Ken Caceres (Electronically Signed) Final Date: 06 November 2016 17:43
[2016-11-07] MEDS: KETOROLAC 15 MG/1 ML VIAL IV SCH ×2 (03:48→09:00)
[2016-11-07] MEDS: ENOXAPARIN 40 MG/0.4 ML SYRINGE SUBCUT SCH (05:27)
[2016-11-07 05:55] LABS: Basophils % 0.5 % (0.0-0.8); Eosinophils # 0.4 10*3/uL (0.0-0.87); Eosinophils % 4.6 % (0.00-10.9); Hematocrit 40.7 VOL% (42.0-52.0); Hemoglobin 13.1 GM/DL (14.0-18.0); Immature Granulocytes % 0.3 %; Immature Granulocytes Absolute 0.02 #; Lymphocytes # 2.2 10*3/uL (1.4-4.0); Lymphocytes % 29.3 % (21.2-54.2); Mean Corpuscular HGB Conc 32.2 GM/DL (32-36); Mean Corpuscular Hemoglobin 27 PG (27-34); Mean Platelet Volume 9.9 FL (9.6-12.0); Monocytes # 0.8 10*3/uL (0.11-0.8); Monocytes % 10.4 % (1.7-12.7); Neutrophils # 4.2 10*3/uL (1.4-7.4); Neutrophils % 54.9 % (38.7-73.9); Platelet Count 227 T/CUMM (130-400); Red Blood Count 4.79 MC/CUMM (3.8-5.5); Red Cell Distribution Width 13.4 % (9.3-17.3); White Blood Count 7.6 T/CUMM (4-12)
[2016-11-07 06:26] LABS: Calcium 8.5 MG/DL (8.5-10.1); Osmolality,Calculated 282.3 MOS/KG (273-304); Potassium 3.7 MMOL/L (3.5-5.1)
[2016-11-07] MEDS: ROSUVASTATIN 20 MG TABLET PO SCH (09:00)
[2016-11-07] MEDS: PANTOPRAZOLE 40 MG TABLET PO SCH (09:00)
[2016-11-07] MEDS: ASPIRIN EC 81 MG TABLET PO SCH (09:00)
--- NOTE | 2016-11-07 09:24 | Gastrointestinal Progress Note ---
Assessment and Plan (1) Atypical chest pain Status: Acute Assessment and plan: 11/07-EGD findings negative with only small hiatal hernia. Continue daily PPI at discharge. No follow-up necessary except as needed only. Plan an addendum to follow Dr. Pfeiffer. 11/05-sudden onset last night of chest pain radiating to his neck and jaw. Negative cardiac workup at present time. History of GERD and esophageal stricture in the past. Symptoms unrelated to previous experience. Last EGD November 2015 with dilation. Plan for tentative EGD tomorrow to further evaluate source of pain. Plan an addendum to followed by Dr. Pfeiffer Current Visit: Yes Gastroenterology - PN: Subj Interval history: CC: Atypical chest pain Patient is seen awake and alert lying in bed. Denies any complaints of pain, nausea or vomiting. EGD on yesterday with only findings a small hiatal hernia with otherwise normal EGD. Patient states he has not had a recurrence of this pain since admission. He is tolerating his diet well. Abdomen soft, nontender. Recommendations for him to continue his daily PPI therapy and contact Dr. Pfeiffer for any further problems GI related. ROS: Denies shortness of breath or chest pain Exam (Progress Note) - Constitutional Vitals: Period Temp Pulse Resp BP Sys/Melissa Pulse Ox Last 24 Hr 96.8 F-98.7 F 70-83 15-20 105-134/58-082 93-100 - Other Additional findings: General appearance: normal weight, no acute distress - Head Head exam: Present: normal inspection, normocephalic - Eye Eye exam: Present: other (Lids and conjunctivae unremarkable). Absent: scleral icterus - ENT ENT exam: Present: normal exam, normal oropharynx - Neck Neck exam: Present: normal inspection - Respiratory Respiratory exam: Present: clear to auscultation bilaterally. Absent: rales, rhonchi, wheezes - Cardiovascular Cardiovascular exam: Present: regular rate and rhythm. Absent: diastolic murmur , JVD, systolic murmur - GI/Abdominal GI/Abdominal exam: Present: normal bowel sounds, tenderness (Abdominal), soft. Absent: ascites, distended, mass, organomegaly - Extremities Exam Extremities exam: Present: normal inspection, full ROM - Back Exam Back exam: Present: normal inspection - Neurological Exam Neurological exam: Present: alert, oriented X3 - Psychiatric Psychiatric exam: Present: normal affect, normal mood - Skin Skin exam: Present: normal color, warm, dry Results - Labs CBC & BMP: 11/07/16 05:32 11/07/16 05:32 Lab Results: I have reviewed the past 24 hour labs Specialty Discharge - Follow Up or Referrals Follow up with: Joe Pfeiffer MD [Physician] - Tiburcio House MD [Physician] - (FOLLOW UP WITH DR HOUSE IN 6 MONTHS. [facility] OFFICE WILL CALL YOU IN FEBRUARY WITH SCHEDULED APPOINTMENT FOR .)
[2016-11-07 12:19] VITALS: BP 136/80
--- NOTE | 2016-11-07 12:25 | Discharge Summary ---
Hospital Course - Hospital Course Hospital Course: Mr. Bazan was admitted for evaluation of atypical chest pain. Serial cardiac troponins were negative. Echocardiogram revealed mild diastolic dysfunction. Patient was evaluated by cardiology and gastroenterology for the source of his atypical pain. Patient is stress test that was normal. Patient had an EGD was also normal. Patient had no recurrence of chest pain by discharge had met maximum benefit of hospitalization. I spent 36 minutes coordinating this discharge. - Time spent with patient Time with patient DS: Greater than 30 minutes Diagnosis - Discharge Diagnosis (1) Chest pain Status: Resolved Specialty Discharge - Follow Up or Referrals Follow up with: Joe Pfeiffer MD [Physician] - Tiburcio Caceres MD [Physician] - (FOLLOW UP WITH DR CACERES IN 6 MONTHS. [facility] OFFICE WILL CALL YOU IN FEBRUARY WITH SCHEDULED APPOINTMENT FOR .) Discharge Plan - Discharge Data Disposition: Disch To Home/Self Care Condition at Discharge: Stable Discharge Diet: advance to your usual diet Activity: resume usual activities as tolerated - Discharge Medications Continue Esomeprazole Magnesium [Nexium] 40 mg PO DAILY Rosuvastatin [Crestor] 20 mg PO DAILY Aspirin 81 mg PO DAILY - Follow Up or Referral Follow Up: Joe Pfeiffer MD [Physician] - Tiburcio Caceres MD [Physician] - (FOLLOW UP WITH DR CACERES IN 6 MONTHS. [facility] OFFICE WILL CALL YOU IN FEBRUARY WITH SCHEDULED APPOINTMENT FOR .) - Forms/Instructions Instructions: Chest Pain (DC), Gastroesophageal Reflux Disease (DC) Exam - Constitutional Vitals: Period Temp Pulse Resp BP Sys/Melissa Pulse Ox Last 24 Hr 96.8 F-98.7 F 70-88 15-20 105-136/58-082 93-100 General appearance: normal weight, no acute distress - Head Head exam: Present: normal inspection, normocephalic, atraumatic - Eye Eye exam: Present: EOMI Pupils: Present: VIOLET - ENT ENT exam: Present: normal exam - Neck Neck exam: Present: normal inspection - Respiratory Respiratory exam: Present: clear to auscultation bilaterally. Absent: accessory muscle use, prolonged expiratory phase, wheezes - Cardiovascular Cardiovascular exam: Present: regular rate and rhythm. Absent: bradycardia, irregular rhythm, systolic murmur - GI/Abdominal GI/Abdominal exam: Present: normal bowel sounds - Extremities Exam Extremities exam: Present: normal inspection Discharge Results Labs on day of discharge: Labs from last 24 hours 11/07/16 11/07/16 05:32 05:32 WBC 7.6 RBC 4.79 Hgb 13.1 L Hct 40.7 L MCV 85.0 L MCH 27 MCHC 32.2 RDW 13.4 Plt Count 227 MPV 9.9 Neut % (Auto) 54.9 Lymph % (Auto) 29.3 [place] % (Auto) 10.4 Eos % (Auto) 4.6 Baso % (Auto) 0.5 Neut # (Auto) 4.2 Lymph # (Auto) 2.2 [place] # (Auto) 0.8 Eos # (Auto) 0.4 Baso # (Auto) 0.0 Immature Gran % 0.3 Nucleated RBC % 0.0 Immature Gran # 0.02 Nucleated RBCs # 0.00 Sodium 141 Potassium 3.7 Chloride 106 Carbon Dioxide 28 Anion Gap 10.7 BUN 16 Creatinine 1.10 GFR Calculation 101 BUN/Creatinine Ratio 14.00 Glucose 110 H Calculated Osmolality 282.3 Calcium 8.5 DS: Provider Date of admission: 11/05/16 05:40 Primary care physician: . No PCP Attending physician on admission: Aylin Lopez MD Consults: 11/05/16 15:43 Consult to Physician [CONS] Routine Comment: History of esophageal stricture, known to you Consulting Provider: Joe Pfeiffer Consult to Specialist Group: Gastroenterology When should Consulting Provider be notified: In am Discharging clinician: Aylin Lopez MD Expected date of discharge: 11/07/16
--- NOTE | 2016-11-07 12:32 | Cardiology Progress Note ---
Cardiology - PN: Subj Interval history: Cardiology note Patient is comfortable and walking without difficulty. Telemetry benign. Blood pressure 132/80. Regular rhythm without murmur or gallop. Clear chest. Abdomen benign. Normal exercise cardiac stress test EGD showed hiatal hernia otherwise normal Plan Home today okay with me Office visit with EKG 6 months Exam (Progress Note) - Constitutional Vitals: Period Temp Pulse Resp BP Sys/Melissa Pulse Ox Last 24 Hr 96.8 F-98.7 F 70-88 15-20 105-136/58-082 93-100 Result/EKG - Labs CBC & BMP: 11/07/16 05:32 11/07/16 05:32 Labs: Laboratory Results - last 24 hr 11/07/16 11/07/16 05:32 05:32 WBC 7.6 RBC 4.79 Hgb 13.1 L Hct 40.7 L MCV 85.0 L MCH 27 MCHC 32.2 RDW 13.4 Plt Count 227 MPV 9.9 Neut % (Auto) 54.9 Lymph % (Auto) 29.3 [place] % (Auto) 10.4 Eos % (Auto) 4.6 Baso % (Auto) 0.5 Neut # (Auto) 4.2 Lymph # (Auto) 2.2 [place] # (Auto) 0.8 Eos # (Auto) 0.4 Baso # (Auto) 0.0 Immature Gran % 0.3 Nucleated RBC % 0.0 Immature Gran # 0.02 Nucleated RBCs # 0.00 Sodium 141 Potassium 3.7 Chloride 106 Carbon Dioxide 28 Anion Gap 10.7 BUN 16 Creatinine 1.10 GFR Calculation 101 BUN/Creatinine Ratio 14.00 Glucose 110 H Calculated Osmolality 282.3 Calcium 8.5 Specialty Discharge - Follow Up or Referrals Follow up with: Joe Pfeiffer MD [Physician] - Tiburcio House MD [Physician] - (FOLLOW UP WITH DR HOUES IN 6 MONTHS. [facility] OFFICE WILL CALL YOU IN FEBRUARY WITH SCHEDULED APPOINTMENT FOR .)
== END 2016-11-07 13:46 | disposition home or self-care (01) ==
LOC: N.EDINP 02:17 → N.ED 02:17 → N.TELEN 12:01
PROVIDERS: ADMIT Internal Medicine; ATTEND Internal Medicine